=== PATIENT | female | born 1940 | race Asian ===

== ENCOUNTER 2023-05-31 22:24 | Inpatient (IN) | payer MEDICARE, MEDICAID ==
[~2023-05-31] VITALS: Ht 152.4 cm; Wt 40.7 kg
[2023-05-31 23:13] LABS: BASOPHILS % 0.4 % (0.0-2.0); EOSINOPHILS % 0.2 % (0.0-5.0); HEMATOCRIT. 35.9 % (36.0-48.0); HEMOGLOBIN. 11.9 g/dL (12.0-16.0); LYMPHOCYTES % 37.1 % (20.0-50.0); MEAN CORPUSCULAR HEMOGLOBIN 32.5 pg (28.0-32.0); MEAN CORPUSCULAR HGB CONC 33.2 g/dL (31.0-37.0); MEAN CORPUSCULAR VOLUME 97.8 fL (81.0-99.0); MONOCYTES % 7.6 % (2.0-8.0); NEUTROPHILS % 54.7 % (40.0-76.0); PLATELET 179 x1000/uL (130-400); RED BLOOD CELL COUNT 3.67 mill/uL (4.2-5.4); RED CELL DISTRIBUTION WIDTH 13.4 % (11.6-14.6); WHITE BLOOD COUNT 3.8 x1000/uL (4.5-11.0)
[2023-05-31 23:20] LABS: CHLORIDE 105 mEq/L (98-107); INDEX HEMOLYSI 1 (1-3); INDEX ICTERIC 1 (1-4); INDEX LIPEMIC 1 (1-3); POTASSIUM 3.8 mEq/L (3.5-5.1); SODIUM 138 mEq/L (136-145)
[2023-05-31 23:36] LABS: ACETAMINOPHEN < 2 ug/mL (10-30); ALANINE AMINOTRANSFERASE 25 IU/L (13-61); ALBUMIN 3.6 g/dL (3.4-5.0); ASPARTATE AMINOTRANSFERASE 37 IU/L (15-37); BILIRUBIN TOTAL 1.1 mg/dL (0.1-1.0); CARBON DIOXIDE 25 mEq/L (21-32); CREATININE 0.7 mg/dL (0.6-1.3); ETHANOL BLOOD < 10 mg/dL (<10); GLUCOSE 88 mg/dL (70-105); PROTEIN TOTAL 7.2 g/dL (6.0-8.3); UREA NITROGEN BLOOD 17 mg/dL (7-21)
[2023-06-01 00:51] LABS: CLARITY URINE CLEAR (CLEAR); COLOR URINE YELLOW (YELLOW); GLUCOSE URINE NEGATIVE (NEGATIVE); KETONES URINE TRACE (NEGATIVE); LEUKOCYTE ESTERASE URINE NEGATIVE (NEGATIVE); NITRITE URINE NEGATIVE (NEGATIVE); OCCULT BLOOD URINE TRACE (NEGATIVE); PH URINE 5.5 (4.5-8.0); PROTEIN URINE NEGATIVE (NEGATIVE); SPECIFIC GRAVITY URINE 1.018 (1.005-1.030); UROBILINOGEN URINE 0.2 E.U./dL (0.2-1.0)
[2023-06-01 00:54] LABS: BACTERIA URINE NONE SEEN; SQUAMOUS EPITHELIAL CELL URINE NONE SEEN /lpf (RARE/1+); YEAST URINE NONE SEEN
[2023-06-01 00:59] LABS: TROPONIN I HIGH SENSITIVITY 8 ng/L (<54)
[2023-06-01 01:03] LABS: *AMPHETAMINES SCREEN URINE NEGATIVE (NEGATIVE); *BARBITURATES SCREEN URINE NEGATIVE (NEGATIVE); *BENZODIAZEPINES SCREEN URINE NEGATIVE (NEGATIVE); *COCAINE SCREEN URINE NEGATIVE (NEGATIVE); CANNABINOID URINE SCREEN NEGATIVE (NEGATIVE); ECSTASY MDMA SCREEN URINE NEGATIVE (NEGATIVE); OPIATES URINE SCREEN NEGATIVE (NEGATIVE); PHENCYCLIDINE URINE SCREEN NEGATIVE (NEGATIVE)
[2023-06-01 05:28] LABS: RBC URINE 0-2 /hpf (0-2); WBC URINE 0-2 /hpf (0-2)
[2023-06-01] MEDS: PANTOPRAZOLE SODIUM 40 MG/VIAL IV SCH (07:30)
[2023-06-01] MEDS ORDERED: MAGNESIUM/ALUMINUM HYDROXIDE/SIMETHICONE 30ML UDC PO PRN (07:30)
[2023-06-01] MEDS: ENOXAPARIN 40MG/0.4ML SYR SUBCUT SCH (07:30)
[2023-06-01] MEDS ORDERED: CLONIDINE 0.1MG TABLET PO PRN (07:30)
[2023-06-01] MEDS ORDERED: ONDANSETRON HCL 4MG/2ML INJ IV PRN (07:30)
[2023-06-01] MEDS ORDERED: KETOROLAC 15MG/ML VIAL IV PRN (07:30)
[2023-06-01] MEDS ORDERED: DOCUSATE SODIUM 100MG CAPSULE PO PRN (07:30)
[2023-06-01] MEDS ORDERED: ACETAMINOPHEN 325MG TABLET PO PRN (07:30)
[2023-06-01] MEDS ORDERED: IPRATROPIUM/ALBUTEROL 0.5-3(2.5)MG/3ML NEB HHN PRN (07:30)
[2023-06-01] MEDS: DEXT 5%/0.45% NACL 1000ML 1,000 ML IV SCH ×2 (07:41→20:01)
[2023-06-01] MEDS ORDERED: ASPIRIN 81MG TABLET PO SCH (10:45)
[2023-06-01 20:00] VITALS: BP 128/43; PULSE 61; RESP 18; TEMP 97.4
[2023-06-01] MEDS: ATORVASTATIN CALCIUM 40MG TABLET PO SCH (20:14)
[2023-06-01 20:53] LABS: BASOPHILS % 0.3 % (0.0-2.0); EOSINOPHILS % 0.5 % (0.0-5.0); HEMATOCRIT. 41.2 % (36.0-48.0); HEMOGLOBIN. 13.2 g/dL (12.0-16.0); LYMPHOCYTES % 42.3 % (20.0-50.0); MEAN CORPUSCULAR HEMOGLOBIN 32.1 pg (28.0-32.0); MEAN CORPUSCULAR HGB CONC 32.2 g/dL (31.0-37.0); MEAN CORPUSCULAR VOLUME 99.8 fL (81.0-99.0); MEAN PLATELET VOLUME 8.3 fl (7.4-10.4); MONOCYTES % 6.5 % (2.0-8.0); NEUTROPHILS % 50.4 % (40.0-76.0); PLATELET 161 x1000/uL (130-400); RED BLOOD CELL COUNT 4.12 mill/uL (4.2-5.4); RED CELL DISTRIBUTION WIDTH 13.7 % (11.6-14.6); WHITE BLOOD COUNT 4.8 x1000/uL (4.5-11.0)
[2023-06-01 21:07] LABS: CHLORIDE 107 mEq/L (98-107); POTASSIUM 4.1 mEq/L (3.5-5.1); SODIUM 137 mEq/L (136-145)
[2023-06-01 21:20] LABS: CALCIUM 7.9 mg/dL (8.5-10.1); CARBON DIOXIDE 25 mEq/L (21-32); CREATININE 0.7 mg/dL (0.6-1.3); GLUCOSE 83 mg/dL (70-105); T4 FREE 1.06 ng/dL (0.76-1.46); UREA NITROGEN BLOOD 14 mg/dL (7-21)
[2023-06-02] VITALS: BP 120/51; PULSE 82; RESP 20; TEMP 97
[2023-06-02 04:00] VITALS: BP 147/48; PULSE 59; RESP 18; TEMP 97.1
[2023-06-02 08:00] VITALS: BP 138/71; PULSE 68; RESP 18; TEMP 96.9
[2023-06-02 08:09] LABS: T4 FREE 1.13 ng/dL (0.76-1.46)
[2023-06-02] MEDS: DICLOFENAC SODIUM 75MG DR (EC) TABLET PO SCH ×2 (08:12→21:00)
[2023-06-02] MEDS: PANTOPRAZOLE SODIUM 40 MG/VIAL IV SCH (08:12)
[2023-06-02] MEDS: ENOXAPARIN 40MG/0.4ML SYR SUBCUT SCH (08:13)
[2023-06-02] MEDS: DEXT 5%/0.45% NACL 1000ML 1,000 ML IV SCH (08:27)
[2023-06-02 12:00] VITALS: BP 112/47; PULSE 64; RESP 18; TEMP 97.7
[2023-06-02 16:00] VITALS: BP 102/50; PULSE 60; RESP 18; TEMP 97.8
[2023-06-02 20:00] VITALS: BP 97/41; PULSE 61; RESP 19; TEMP 97.9
[2023-06-02] MEDS: ATORVASTATIN CALCIUM 40MG TABLET PO SCH (21:03)
[2023-06-03] VITALS: BP 119/54; PULSE 64; RESP 19; TEMP 97.5
[2023-06-03 04:00] VITALS: BP 112/46; PULSE 65; RESP 19; TEMP 98.1
[2023-06-03 06:59] LABS: BASOPHILS % 0.3 % (0.0-2.0); EOSINOPHILS % 0.4 % (0.0-5.0); HEMATOCRIT. 34.1 % (36.0-48.0); HEMOGLOBIN. 11.8 g/dL (12.0-16.0); LYMPHOCYTES % 19.5 % (20.0-50.0); MEAN CORPUSCULAR HEMOGLOBIN 32.4 pg (28.0-32.0); MEAN CORPUSCULAR HGB CONC 34.5 g/dL (31.0-37.0); MEAN PLATELET VOLUME 8.8 fl (7.4-10.4); MONOCYTES % 5.5 % (2.0-8.0); NEUTROPHILS % 74.3 % (40.0-76.0); PLATELET 169 x1000/uL (130-400); RED BLOOD CELL COUNT 3.63 mill/uL (4.2-5.4); RED CELL DISTRIBUTION WIDTH 12.8 % (11.6-14.6); WHITE BLOOD COUNT 5.3 x1000/uL (4.5-11.0)
[2023-06-03 07:09] LABS: CHLORIDE 105 mEq/L (98-107); INDEX HEMOLYSI 1 (1-3); INDEX ICTERIC 1 (1-4); INDEX LIPEMIC 1 (1-3); POTASSIUM 3.8 mEq/L (3.5-5.1); SODIUM 135 mEq/L (136-145)
[2023-06-03 07:22] LABS: ALANINE AMINOTRANSFERASE 18 IU/L (13-61); ALBUMIN 2.9 g/dL (3.4-5.0); ASPARTATE AMINOTRANSFERASE 20 IU/L (15-37); BILIRUBIN TOTAL 0.7 mg/dL (0.1-1.0); CALCIUM 8.8 mg/dL (8.5-10.1); CARBON DIOXIDE 28 mEq/L (21-32); CREATININE 0.7 mg/dL (0.6-1.3); GLUCOSE 109 mg/dL (70-105); PHOSPHORUS 2.7 mg/dL (2.5-4.9); PROTEIN TOTAL 5.9 g/dL (6.0-8.3); UREA NITROGEN BLOOD 16 mg/dL (7-21)
[2023-06-03 08:00] VITALS: BP 104/57; PULSE 67; RESP 20; TEMP 97.4
[2023-06-03] MEDS: FAMOTIDINE 20MG TABLET PO SCH (09:02)
[2023-06-03] MEDS: DICLOFENAC SODIUM 75MG DR (EC) TABLET PO SCH ×2 (09:02→20:29)
[2023-06-03] MEDS: ENOXAPARIN 40MG/0.4ML SYR SUBCUT SCH (09:02)
[2023-06-03 09:10] LABS: INDEX HEMOLYSI 1 (1-3)
[2023-06-03 09:44] LABS: VITAMIN B12 SERUM 446 pg/mL (211-911)
[2023-06-03 12:00] VITALS: BP 103/57; PULSE 64; RESP 18; TEMP 97.4
[2023-06-03 16:00] VITALS: BP 99/52; PULSE 73; RESP 18; TEMP 97.4
[2023-06-03 20:00] VITALS: BP 100/52; PULSE 72; RESP 19; TEMP 97.9
[2023-06-03] MEDS: ATORVASTATIN CALCIUM 40MG TABLET PO SCH (20:29)
[2023-06-04] VITALS: BP 119/57; PULSE 63; RESP 20; TEMP 98.1
[2023-06-04 04:00] VITALS: BP 129/54; PULSE 66; RESP 19; TEMP 98.1
[2023-06-04] MEDS: ENOXAPARIN 40MG/0.4ML SYR SUBCUT SCH (07:57)
[2023-06-04 08:00] VITALS: BP 126/54; PULSE 62; RESP 20; TEMP 97.6
[2023-06-04] MEDS: DICLOFENAC SODIUM 75MG DR (EC) TABLET PO SCH ×2 (09:03→21:04)
[2023-06-04 09:07] LABS: ANTI-DNA DOUBLE STRANDED QUANT < 1 IU/mL (0-9); COMPLEMENT C3 84 mg/dL (82-167); COMPLEMENT C4 19 mg/dL (12-38)
[2023-06-04 09:07] LABS: RNP ANTIBODY 0.6 AI (0.0-0.9); SMITH ANTIBODY < 0.2 AI (0.0-0.9)
[2023-06-04 10:13] LABS: T4 FREE 1.02 ng/dL (0.76-1.46); THYROID STIMULATING HORMONE 2.6 uIU/mL (0.36-3.74)
[2023-06-04 12:00] VITALS: BP 114/57; PULSE 74; RESP 20; TEMP 97.5
[2023-06-04 16:00] VITALS: BP 107/44; PULSE 71; RESP 20; TEMP 97.7
[2023-06-04 16:51] LABS: INDEX HEMOLYSI 1 (1-3)
[2023-06-04 16:59] LABS: CREATINE KINASE 86 IU/L (26-192); CREATINE KINASE MB FRACTION 1.7 ng/mL (0.5-3.6); TROPONIN I HIGH SENSITIVITY 9 ng/L (<54)
[2023-06-04 20:00] VITALS: BP 101/57; PULSE 89; RESP 20; TEMP 97
[2023-06-04] MEDS: ATORVASTATIN CALCIUM 40MG TABLET PO SCH (21:04)
[2023-06-05] VITALS: BP 120/80; PULSE 90; RESP 20; TEMP 98
[2023-06-05 02:05] VITALS: BP 111/69; PULSE 59; RESP 17; TEMP 97.7
[2023-06-05 07:14] LABS: CREATINE KINASE MB FRACTION 1.2 ng/mL (0.5-3.6)
[2023-06-05 08:00] VITALS: BP 124/56; PULSE 58; RESP 18; TEMP 97.3
[2023-06-05] MEDS: DICLOFENAC SODIUM 75MG DR (EC) TABLET PO SCH ×2 (08:40→21:00)
[2023-06-05] MEDS: FAMOTIDINE 20MG TABLET PO SCH (08:40)
[2023-06-05] MEDS: ENOXAPARIN 40MG/0.4ML SYR SUBCUT SCH (08:40)
[2023-06-05 09:06] LABS: ANGIOTENSION CONVERTING ENZYME 48 U/L (14-82)
[2023-06-05 12:00] VITALS: BP 107/45; PULSE 68; RESP 18; TEMP 97.8
[2023-06-05 13:07] LABS: ANTI-CARDIOLIPIN AB IGG < 9 GPL U/mL (0-14); ANTI-CARDIOLIPIN AB IGM 15 MPL U/mL (0-12)
[2023-06-05 16:00] VITALS: BP 115/56; PULSE 71; RESP 18; TEMP 98.1
[2023-06-05] MEDS ORDERED: WARFARIN SODIUM 2.5MG TABLET PO NR (18:36)
[2023-06-05 19:09] LABS: ANTI-MYELOPEROXIDASE AB < 0.2 units (0.0-0.9); ANTI-PROTEINASE 3 ABS < 0.2 units (0.0-0.9)
[2023-06-05 20:00] VITALS: BP 96/47; PULSE 17; RESP 17; TEMP 98
[2023-06-05] MEDS: ATORVASTATIN CALCIUM 40MG TABLET PO SCH (21:43)
[2023-06-06] VITALS: BP 104/45; PULSE 67; RESP 17; TEMP 98
[2023-06-06 04:00] VITALS: BP 101/42; PULSE 67; RESP 18; TEMP 97.8
[2023-06-06 06:57] LABS: PROTHROMBIN TIME 10.4 sec (9.6-11.0)
[2023-06-06 06:58] LABS: BASOPHILS % 0.4 % (0.0-2.0); EOSINOPHILS % 1.2 % (0.0-5.0); HEMATOCRIT. 32.7 % (36.0-48.0); HEMOGLOBIN. 11.4 g/dL (12.0-16.0); LYMPHOCYTES % 22.7 % (20.0-50.0); MEAN CORPUSCULAR HEMOGLOBIN 33.3 pg (28.0-32.0); MEAN CORPUSCULAR VOLUME 95.1 fL (81.0-99.0); MONOCYTES % 7.7 % (2.0-8.0); PLATELET 166 x1000/uL (130-400); RED BLOOD CELL COUNT 3.44 mill/uL (4.2-5.4); RED CELL DISTRIBUTION WIDTH 13.2 % (11.6-14.6); WHITE BLOOD COUNT 4.7 x1000/uL (4.5-11.0)
[2023-06-06] MEDS: ENOXAPARIN 40MG/0.4ML SYR SUBCUT SCH (07:26)
[2023-06-06 08:00] VITALS: BP 137/55; PULSE 59; RESP 18; TEMP 97.7
[2023-06-06 08:36] LABS: CALCIUM 8.6 mg/dL (8.5-10.1); CHLORIDE 106 mEq/L (98-107); INDEX HEMOLYSI 1 (1-3); INDEX ICTERIC 1 (1-4); INDEX LIPEMIC 1 (1-3); POTASSIUM 4.5 mEq/L (3.5-5.1); SODIUM 136 mEq/L (136-145)
[2023-06-06 08:41] LABS: CARBON DIOXIDE 28 mEq/L (21-32); CREATININE 0.7 mg/dL (0.6-1.3); GLUCOSE 85 mg/dL (70-105); UREA NITROGEN BLOOD 22 mg/dL (7-21)
[2023-06-06] MEDS ORDERED: MEMANTINE HCL 5MG TABLET PO SCH (09:00)
[2023-06-06] MEDS: DICLOFENAC SODIUM 75MG DR (EC) TABLET PO SCH (09:31)
[2023-06-06 11:55] VITALS: BP 107/40; PULSE 68; RESP 20; TEMP 97.6
[2023-06-06 13:07] LABS: ATYPICAL P-ANCA <1:20 titer (Neg:<1:20); CYTOPLASMIC C-ANCA <1:20 titer (Neg:<1:20); PERINUCLEAR P-ANCA <1:20 titer (Neg:<1:20)
[2023-06-06 16:00] VITALS: BP 107/40; PULSE 68; RESP 20; TEMP 97
[2023-06-06 17:06] LABS: ANA IFA Positive (.)
[2023-06-06] MEDS ORDERED: WARFARIN SODIUM 3MG TABLET PO NR (18:00)
[2023-06-06 19:50] VITALS: BP 119/61; PULSE 81; TEMP 98.1; O2SAT 97
== END 2023-06-06 20:20 | disposition home health service (06) | DRG 71 ==
LOC: ER 22:24 → MICUSO 06-01 02:58 → EDBEDREQ 06-01 03:00 → SUPCPDRO 06-01 11:40 → 8WST 06-01 18:32 → 4WST 06-05 01:49
PROVIDERS: ADMIT Internal Medicine; ATTEND Internal Medicine
DX: G93.40 Encephalopathy, unspecified (principal); D68.61 Antiphospholipid syndrome; E87.1 Hypo-osmolality and hyponatremia; I48.92 Unspecified atrial flutter; G45.9 Transient cerebral ischemic attack, unspecified; R41.82 Altered mental status, unspecified; D63.8 Anemia in other chronic diseases classified elsewhere; E04.1 Nontoxic single thyroid nodule; I27.21 Secondary pulmonary arterial hypertension; I70.0 Atherosclerosis of aorta; I71.21 Aneurysm of the ascending aorta, without rupture; M48.02 Spinal stenosis, cervical region; N28.1 Cyst of kidney, acquired; M85.80 Other specified disorders of bone density and structure, unspecified site; M47.816 Spondylosis without myelopathy or radiculopathy, lumbar region; I10 Essential (primary) hypertension; M50.30 Other cervical disc degeneration, unspecified cervical region; E86.0 Dehydration; F03.90 Unspecified dementia, unspecified severity, without behavioral disturbance, psychotic disturbance, mood disturbance, and anxiety; I35.8 Other nonrheumatic aortic valve disorders; I35.1 Nonrheumatic aortic (valve) insufficiency; K21.9 Gastro-esophageal reflux disease without esophagitis; R00.1 Bradycardia, unspecified; I95.9 Hypotension, unspecified; Z79.82 Long term (current) use of aspirin; Z79.899 Other long term (current) drug therapy
CPT/HCPCS: 36415; 70490; 70551; 71045; 71250; 71260; 73060; 73070; 73090; 73100; 74177; 76536; 80048; 80053; 80061; 80305; 80307; 80320; 80329; 81003; 82164; 82550; 82553; 82595; 82607; 82746; 82962; 83036; 83520; 83735; 84100; 84439; 84443; 84484; 85025; 85379; 85651; 86147; 86160; 86225; 86235; 86256; 86431; 93005; 93306; 93970; 97116; 97162; 97166; 97530; 99285; C9113; J1650; G0480